=== PATIENT | female | born 1950 | race Caucasian/White ===

== ENCOUNTER 2019-06-01 13:20 | Outpatient (CLI) | payer MEDICARE, OTHER ==
[~2019-06-01 13:20] MED LIST: AMARYL1 MG ORAL; AMBIEN5 MG ORAL; ASPIRIN EC81 MG ORAL; ATENOLOL25 MG ORAL; BACLOFEN10 MG ORAL; BENTYL10 MG ORAL; CENTRUM SILVER1 EAC4 PO; CRESTOR20 MG ORAL; DEXILANT60 MG ORAL; GABAPENTIN300 MG ORAL; HYDRALAZINE HCL50 MG ORAL; HYDROCHLOROTHIA50 MG ORAL; INVOKANA100 MG PO; JARDIANCE PO; LEVOTHYROXINE75 MCG ORAL; LEXAPRO20 MG ORAL; LOSARTAN POTASS50 MG ORAL; METFORMIN HCL1000 M1 ORAL; METOCLOPRA10 MG/10 M ORAL; MULTIGEN PLUS1 EACH PO; OMEGA-31000 M1 PO; PLAVIX75 MG ORAL; PRANDIN1 MG ORAL; REGLAN10 MG ORAL; SIMVASTATIN20 MG ORAL; STARLIX60 MG ORAL; SUCRALFATE1 GM/10 ML PO; TRULICITY1.5 MG/0.5 SQ; VICTOZA 2-0.6 MG/0.1 SUBQ; VITAMIN C500 M1 ORAL; VITAMIN D250000 UNI1 ORAL; VYTORIN 10-201 EACH ORAL
--- NOTE | 2019-06-01 15:06 | General Progress Note ---
Assessment/Plan Assessment/Plan: (1) Fatty liver (2) Fibromyalgia (3) Gastritis (4) GERD (gastroesophageal reflux disease) (5) Sarcoidosis (6) Abdominal pain (7) DM (diabetes mellitus) (8) Colon polyps (9) Gatric ulcers plan EGD and colonoscopy next week refill Dexilant per patient has had duoble balloon at [facility] Subjective ROS Limited/Unobtainable: Yes Allergies: Coded Allergies: No Known Allergies (Verified , 08/24/08) Objective General Appearance: alert EENT: normal ENT inspection Neck: supple Cardiovascular: normal rate Respiratory/Chest: lungs clear Abdomen: normal bowel sounds, non tender, soft Extremities: non-tender Rex Pelaez MD Jun 01, 2019 15:06
== END 2019-06-01 15:20 | disposition home or self-care (01) ==
LOC: PAN 13:20
DX: K21.9 Gastro-esophageal reflux disease without esophagitis (principal); K76.0 Fatty (change of) liver, not elsewhere classified; M79.7 Fibromyalgia; K29.70 Gastritis, unspecified, without bleeding; R10.9 Unspecified abdominal pain; E11.9 Type 2 diabetes mellitus without complications; K63.5 Polyp of colon